=== PATIENT | female | born 1995 | race Caucasian/White ===

== ENCOUNTER 2023-06-11 08:08 | Emergency (ER) | payer OTHER, SELFPAY ==
--- NOTE | ~2023-06-11 | CT_ITS ---
EXAMINATION: CT lumbar spine wo con DATE: 06/11/2023 09:18 INDICATION: Leg tingling. Back pain. TECHNIQUE: Computed tomography (CT) of the lumbar spine was performed without intravenous contrast. T he dose-length product was 1426.15 mGy-cm. Automated exposure control and iterative reconstruction te huinique were employed. COMPARISON: None FINDINGS: Vertebral body heights are maintained. There is mild disc narrowing at L5-S1. There is mild disc bulging at L4-5 and L5-S1 without significant spinal stenosis. No fracture, subluxation or disl ocation. No evidence for spondylolisthesis. Remainder of the disc heights are preserved. No significa nt paraspinal soft tissue abnormality. IMPRESSION: 1. Mild lumbar spondylosis. Reviewed, dictated and finalized at location B. ETIC SHOE DESIGNER IMPRESSION: 1. Mild lumbar spondylosis.
--- NOTE | ~2023-06-11 | CT_ITS ---
EXAMINATION: CT brain wo con INDICATION: Leg tingling and numbness COMPARISON: None TECHNIQUE: Standard unenhanced head CT. The dose-length product (DLP) was 605.33 mGy-cm. The mA was a djusted according to patient size. Iterative reconstruction technique was employed. FINDINGS: No intracranial hemorrhage, acute infarction, or abnormal mass lesion. The ventricles are n ormal. No abnormal mass effect or midline shift. The cespedes-white matter differentiation is normal. The basal cisterns are patent. The orbits are normal. There is a polyp or mucous retention cyst of the r ight maxillary sinus. IMPRESSION: 1. No acute intracranial abnormality. Reviewed, dictated and finalized at location F. R INSPECTOR
[2023-06-11 08:30] VITALS: BP 167/110; PULSE 90; RESP 16; O2SAT 100
--- NOTE | 2023-06-11 08:30 | ED.GENADULT ---
HPI - General Adult General Chief complaint: Neuro Symptoms/Deficit Stated complaint: Numbness, tingling in extremity Time Seen by Provider: 06/11/23 08:12 History of Present Illness HPI narrative: 28-year-old female presenting to the emergency department for evaluation of intermittent leg tingling that has been going on for the last few weeks. Patient states that she has been having progressively worse tingling of her bilateral lower extremities over the last few weeks. Patient states that it seems to be worse at nighttime. Patient denies any falls or injuries. Patient denies a recent epidurals. Patient denies any recent immunizations. Patient denies any associated numbness or weakness. Patient denies any change in bowel or bladder habits. Patient was just treated For shingles and the rash is healing. Related Data Home Medications Medication Instructions Recorded Confirmed levonorgestrel 0.15 mg-ethinyl tablet PO 05/28/23 estradiol 0.03 mg tablet (Antoine (28)) Allergies Allergy/AdvReac Type Severity Reaction Status Date / Time No Known Allergies Allergy Verified 06/11/23 08:30 Review of Systems Review of Systems: All systems reviewed & are unremarkable except as noted in HPI and below PMFSH Past Medical History Medical History (Updated 06/11/23 @ 09:58 by Jesus Manuel Moss MD) H/O pilonidal cyst Family History Family History (Updated 05/28/23 @ 14:39 by Viry Gutierrez [facility]) Grandparent Lymphoma Social History Social History (Updated 05/28/23 @ 14:39 by Viry Gutierrez [facility]) Smoking status: Never smoker Alcohol intake: current Alcohol use details: occasional Substance use: never Living arrangements: with family Occupation/Education: occupation Gender identity (if verbalized by the patient): Female Sexual Orientation (if Verbalized by the Patient): Straight or Heterosexual Exam Narrative: APPEARANCE: Well appearing, no pain, no distress, well-nourished. HEAD: normocephalic, atraumatic. EYES: PERRLA/EOMI, conjunctivae clear. NOSE: Normal no drainage EARS:TMS clear with good light reflex. THROAT: Pharynx clear, no exudate. NECK: Supple. No adenopathy, no masses. RESPIRATORY: Airway patent, respirations nonlabored. Clear to auscultation bilaterally, no rales, rhonchi, wheezing. CARDIOVASCULAR: Regular rate and rhythm without murmurs rubs or gallops. ABDOMINAL: Soft, nontender, nondistended, normal bowel sounds MUSCULOSKELETAL: Moves all extremities. Strength/ROM intact, No edema, No calf tenderness. NEURO: Alert. Cranial nerves II through XII intact. normal proprioception for lower extremities no ataxia normal strength and reflexes. Normal neuro exam. normal Forward and backward tandem gait. Negative Romberg. SKIN: Warm, dry. Normal Color Course Course Emergency Course: 28-year-old female presenting to the emergency department for evaluation of intermittent tingling of her bilateral lower extremities. Patient has a normal comprehensive neuro exam. Patient had a negative head CT and a negative lumbar CT. Patient was updated on the results of her exam and workup. Patient was provided follow-up with Neurology for additional outpatient workup. Patient and family are comfortable with the plan for close follow-up. All questions and concerns were addressed. Vital Signs Vital signs: Vital Signs Pulse Rate 90 06/11/23 08:30 Respiratory Rate 16 06/11/23 08:30 Blood Pressure 167/110 H 06/11/23 08:30 Pulse Oximetry 100 06/11/23 08:30 Pulse Rate 68 06/11/23 10:18 Respiratory Rate 16 06/11/23 10:18 Blood Pressure 167/110 H 06/11/23 08:30 Pulse Oximetry 100 06/11/23 08:30 Medical Decision Making Differential Diagnosis Differential Diagnosis: intracranial abnormality, spinal compression, neuropathy Vital Signs Vital Signs: Vital Signs Pulse Rate 90 06/11/23 08:30 Respiratory Rate 16 06/11/23 08:30 Blood Pressur
[2023-06-11 08:38] LABS: Basophils Percent Auto 0.4 % (0.2-1.2); Eosinophils Absolute Auto 0.1 K/mm3 (0-0.3); Eosinophils Percent Auto 0.6 % (0-4.4); Hematocrit 42.4 % (37.0-47.0); Hemoglobin 13.8 g/dL (12.0-15.0); Immature Granulocyte Absolute 0.02 K/mm3 (0.00-0.031); Immature Granulocyte Percent A 0.2 % (0-0.5); Lymphocytes Absolute Auto 2.53 K/mm3 (0.9-3.2); Lymphocytes Percent Auto 31.3 % (18.3-44.2); Mean Corpuscular HGB Conc 32.5 g/dl (32-36); Mean Corpuscular Hemoglobin 29.9 pg (26-34); Mean Corpuscular Volume 91.8 fl (80-100); Mean Platelet Volume 9.7 fl (7.4-10.4); Monocytes Absolute Auto 0.5 K/mm3 (0.1-0.6); Monocytes Percent Auto 6.4 % (2.6-8.5); Neutrophils Absolute Auto 4.9 K/mm3 (1.3-6.7); Neutrophils Percent Auto 61.1 % (45.5-73.1); Platelet Count Result 252 k/mm3 (150-375); Red Blood Count 4.62 M/mm3 (4.2-5.4); White Blood Count 8.1 K/mm3 (4.5-10.0)
[2023-06-11 08:48] LABS: Alanine Aminotransferase 22 U/L (6-35); Albumin Level 4.7 g/dL (3.5-5.1); Alkaline Phosphatase 58 U/L (38-126); Anion Gap 11 mmol/L (8-16); Aspartate Amino Transferase 28 U/L (14-36); Bilirubin,Total 0.6 mg/dL (0.2-1.3); Blood Urea Nitrogen 11 mg/dL (7-17); Calcium 9.9 mg/dL (8.4-10.2); Carbon Dioxide 23 mmol/L (22-30); Chloride 104 mmol/L (98-107); Estimated Glomerular Filt Rate > 60; Glucose 107 mg/dL (65-110); Magnesium 1.9 mg/dL (1.6-2.3); Potassium 4.2 mmol/L (3.4-5.0); Sodium 138 mmol/L (137-145)
[2023-06-11 08:52] LABS: Prothrombin Time 13.1 Seconds (11.1-14.7)
[2023-06-11 08:53] LABS: Partial Thromboplastin Time 27.4 SECONDS (22.3-36.8)
[2023-06-11 10:18] VITALS: PULSE 68; RESP 16
== END 2023-06-11 10:18 | disposition home or self-care (01) ==
PROVIDERS: Emergency Provider Emergency Medicine; PCP Family Medicine Sports Medicine
DX: G62.9 Polyneuropathy, unspecified (principal); M47.816 Spondylosis without myelopathy or radiculopathy, lumbar region
CPT/HCPCS: 36415; 70450; 72131; 80053; 81025; 82627; 83525; 83735; 84403; 84443; 85025; 85610; 85730; 99284

== ENCOUNTER 2023-06-11 10:33 | Outpatient (CLI) | payer OTHER, SELFPAY ==
[2023-06-13 12:27] LABS: DHEA-Sulfate 293 mcg/dL (18-391)
[2023-06-15 11:52] LABS: Testosterone Total 22 ng/dL (2-45)
[2023-06-16 12:16] LABS: Insulin Level Total 25.2 uIU/mL (<=18.4)
[2023-06-16 15:31] LABS: Anti Mullerian Hormone,Female 6.97 ng/mL (0.69-13.39)
== END 2023-06-11 10:34 | disposition home or self-care (01) ==
LOC: ANHLAB 10:34
PROVIDERS: PCP Family Medicine Sports Medicine; Visit Provider Student in an Organized Health Care Education/Training Program
DX: L68.0 Hirsutism (principal)
CPT/HCPCS: 36415; 82627; 83525; 84403

== ENCOUNTER 2023-06-13 21:36 | Emergency (ER) | payer OTHER, SELFPAY ==
[2023-06-13 21:40] VITALS: BP 164/89; PULSE 88; RESP 18; TEMP 36.8; O2SAT 100
--- NOTE | 2023-06-13 22:58 | PC.NURSE ---
This Rn assumed care of patient. This RN took patient report from JESSI Licea.
--- NOTE | 2023-06-13 23:15 | PC.NURSE ---
report given to JESSI Lucio. all questions answered.
[2023-06-13 23:26] LABS: Alanine Aminotransferase 19 U/L (6-35); Albumin Level 4.6 g/dL (3.5-5.1); Alkaline Phosphatase 49 U/L (38-126); Anion Gap 11 mmol/L (8-16); Aspartate Amino Transferase 28 U/L (14-36); Bilirubin,Total 0.4 mg/dL (0.2-1.3); Blood Urea Nitrogen 13 mg/dL (7-17); Carbon Dioxide 22 mmol/L (22-30); Chloride 106 mmol/L (98-107); Estimated CRCL calculation 118 ml/min; Estimated Glomerular Filt Rate > 60; Glucose 105 mg/dL (65-110); Sodium 139 mmol/L (137-145)
[2023-06-13 23:29] LABS: INR 0.9; Prothrombin Time 12.9 Seconds (11.1-14.7)
--- NOTE | 2023-06-13 23:29 | PC.NURSE ---
Torri at [facility] transfer center, called to get report on patient. THis RN provided report for patient to be transferred to their facility.
--- NOTE | 2023-06-14 | ED.GENADULT ---
HPI - General Adult General Chief complaint: Unspecified Stated complaint: numbness all over Time Seen by Provider: 06/13/23 22:02 History of Present Illness HPI narrative: This is a 28-year-old female vomiting back to the ED with progressive sensation loss to her lower extremities. She was seen here 2 days ago with numbness of her feet. When she woke up today she noticed that she had lost sensation of heat and cold her feet. Additionally she is not experiencing numbness in her hands. Patient had a shingles infection 2 weeks ago that has since resolved. She denies difficulty breathing slurred speech or any facial paralysis, chest pain difficulty breathing or urinary symptoms Related Data Home Medications Medication Instructions Recorded Confirmed levonorgestrel 0.15 mg-ethinyl tablet PO 05/28/23 estradiol 0.03 mg tablet (Antoine (28)) Allergies Allergy/AdvReac Type Severity Reaction Status Date / Time No Known Allergies Allergy Verified 06/13/23 21:36 [facility] Past Medical History Medical History H/O pilonidal cyst Family History Family History Grandparent Lymphoma Social History Social History Smoking status: Never smoker Alcohol intake: current Alcohol use details: occasional Substance use: never Living arrangements: with family Occupation/Education: occupation Gender identity (if verbalized by the patient): Female Sexual Orientation (if Verbalized by the Patient): Straight or Heterosexual Exam Narrative: APPEARANCE: No apparent distress. Head: atraumatic. EYES: EOMI, NOSE: Atraumatic NECK: Trachea midline RESPIRATORY: No increased rate of breathing CARDIOVASCULAR: RRR, ABDOMINAL: Non-distended MUSCULOSKELETAl: No obvious deformities NEURO: Loss of hot cold sensation up to the knees and elbows. lower extremitiy strength intact. Unable to elicit reflexes at the Achilles. Patellar reflex intact. Cranial nerves intact. SKIN:: Warm, dry. Normal color PSYCHIATRIC: Normal affect Course Vital Signs Vital signs: Vital Signs Temperature 98.3 F 06/13/23 21:40 Pulse Rate 88 06/13/23 21:40 Respiratory Rate 18 06/13/23 21:40 Blood Pressure 164/89 H 06/13/23 21:40 Pulse Oximetry 100 06/13/23 21:40 Oxygen Delivery Room Air 06/13/23 21:40 Temperature 98.3 F 06/13/23 21:40 Pulse Rate 100 06/14/23 01:52 Respiratory Rate 21 H 06/14/23 01:52 Blood Pressure 154/96 H 06/14/23 01:52 Pulse Oximetry 100 06/14/23 01:52 Oxygen Delivery Room Air 06/13/23 21:40 Medical Decision Making MDM Narrative Medical decision making narrative: -Course: 20-year-old female brought in back to the ED with progressive numbness and loss of hot cold sensation of the extremities. Given her recent viral infection I am concerned for Guillain-Rexville. We do not have Neurology here over the weekend. She will be transferred to [facility] for further evaluation. -DDX includes but is not limited to: Guillan [place], polyneuropathy, transverse myelitis, Ysfclxt-Lyzwg-Dyldl disease -Social determinants of health: Works as a assistant football coach, lives with her -External Chart Review: Review of ER notes from 2 days ago -Hx from independent Sources: at bedside -Independent interpretation of studies: Laboratory studies WNL -Discussion of Management/Consultants: [facility] transfer line, neuro, accepted under Dr. Melo -Shared decision making / Disposition: Transferred Vital Signs Vital Signs: Vital Signs Temperature 98.3 F 06/13/23 21:40 Pulse Rate 88 06/13/23 21:40 Respiratory Rate 18 06/13/23 21:40 Blood Pressure 164/89 H 06/13/23 21:40 Pulse Oximetry 100 06/13/23 21:40 Oxygen Delivery Room Air 06/13/23 21:40 Temperature 98.3 F 06/13/23 21:40 Pulse R
[2023-06-14 00:20] LABS: Basophils Percent Auto 0.3 % (0.2-1.2); Eosinophils Percent Auto 0.4 % (0-4.4); Hematocrit 39.1 % (37.0-47.0); Hemoglobin 12.5 g/dL (12.0-15.0); Immature Granulocyte Absolute 0.03 K/mm3 (0.00-0.031); Immature Granulocyte Percent A 0.3 % (0-0.5); Lymphocytes Absolute Auto 2.73 K/mm3 (0.9-3.2); Lymphocytes Percent Auto 27.9 % (18.3-44.2); Mean Corpuscular Hemoglobin 29.3 pg (26-34); Mean Corpuscular Volume 91.8 fl (80-100); Mean Platelet Volume 9.9 fl (7.4-10.4); Monocytes Absolute Auto 0.7 K/mm3 (0.1-0.6); Monocytes Percent Auto 7.1 % (2.6-8.5); Neutrophils Absolute Auto 6.3 K/mm3 (1.3-6.7); Platelet Count Result 231 k/mm3 (150-375); Red Blood Count 4.26 M/mm3 (4.2-5.4); Red Cell Distribution Width 13.1 % (11.5-14.5); White Blood Count 9.8 K/mm3 (4.5-10.0)
[2023-06-14 00:29] VITALS: BP 133/95; PULSE 92; RESP 14; O2SAT 100
[2023-06-14 00:30] VITALS: PULSE 91; RESP 18; O2SAT 100
[2023-06-14 00:31] VITALS: BP 141/119; PULSE 98; RESP 14
[2023-06-14 01:16] VITALS: PULSE 84; RESP 17
[2023-06-14 01:52] VITALS: BP 154/96; PULSE 100; RESP 21; O2SAT 100
== END 2023-06-14 03:08 | disposition short-term general hospital (02) ==
PROVIDERS: Emergency Provider Emergency Medicine; PCP Family Medicine Sports Medicine
DX: G61.0 Guillain-Barre syndrome (principal)
CPT/HCPCS: 36415; 80053; 85025; 85610; 85730; 99285